=== PATIENT | female | born 1955 | race Caucasian/White ===

== ENCOUNTER → 2019-01-29 | Outpatient (CLI) | payer OTHER ==
[~2019-01-29] MED LIST: ALBUTEROL INHAL17 GM IH; ASPIRIN325 PO; AVALIDE 150-121 EACH PO; BENICAR HCT 401 EACH PO; CENESTIN0.45 MG PO; COLACE100 MG PO; COUMADIN PO; CRESTOR40 MG PO; GLUCOPHAGE500 MG PO; HYDROCODON-ACE1 EAC8 PO; IRON325 PO; LOSARTAN-HCTZ1 EAC2 PO; PHENERGAN-CODE120 ML PO; REGLAN 10 MG TA10 MG PO; VICTOZA0.6 MG/0.1 SQ
== END ==
LOC: CAT 11:15
DX: Z13.6 Encounter for screening for cardiovascular disorders (principal); E78.00 Pure hypercholesterolemia, unspecified; I25.10 Atherosclerotic heart disease of native coronary artery without angina pectoris

== ENCOUNTER 2019-03-02 00:54 | Emergency (ER) | payer OTHER ==
[~2019-03-02] VITALS: Ht 170.2 cm; Wt 93.0 kg
[2019-03-02] MEDS ORDERED: BYSTOLIC 5 MG5 M1 PO (01:04)
[2019-03-02] MEDS ORDERED: GLIPIZIDE 10 MG10 MG PO (01:05)
[2019-03-02] MEDS ORDERED: GLUCOPHAGE XR750 MG PO (01:05)
[2019-03-02] MEDS ORDERED: EDARBYCLOR 40-1 EACH PO (01:06)
[2019-03-02] MEDS ORDERED: LIPITOR 20 MG T20 M1 PO (01:06)
[2019-03-02 01:53] LABS: AMP/METHAMP Negative (Negative); BARBITURATES Negative (Negative); BENZODIAZEPINES Negative (Negative); COCAINE Negative (Negative); METHADONE Negative (Negative); OPIATES Negative (Negative); PCP Negative (Negative)
[2019-03-02 02:04] LABS: ABSOLUTE NEUTROPHILS 5.2 thou/uL (1.4-8.2); BASOPHILS 0.6 % (0.0-2.0); EOSINOPHILS 1.3 % (0.0-3.0); HEMATOCRIT 36.5 % (37.0-47.0); HEMOGLOBIN 12.1 gm/dL (12.0-15.0); LYMPHOCYTES 32.1 % (24.0-44.0); MCH 27.1 pg (26.0-34.0); MCHC 33.1 g/dL (28.0-37.0); MCV 81.9 fL (80.0-100.0); MONOCYTES 8.4 % (1.0-8.0); PLATELET COUNT 258 thou/uL (150-400); POLYS 57.6 % (36.0-66.0); RBC 4.45 mil/uL (4.20-5.00); RDW 13.9 % (10.5-14.5)
[2019-03-02 02:15] LABS: ANION GAP 9 mmol/L (7-16); BUN 23 mg/dL (7-18); CALCIUM 11.9 mg/dL (8.5-10.1); CHLORIDE 100 mmol/L (98-107); CO2 30 mmol/L (21-32); CREATININE 1.1 mg/dL (0.6-1.0); GLUCOSE 167 mg/dL (74-106); POTASSIUM 4.4 mmol/L (3.5-5.1); SODIUM 139 mmol/L (136-145)
[2019-03-02 02:17] LABS: PROTIME 9.2 Seconds (9.3-11.4)
[2019-03-02 02:24] LABS: ALBUMIN 3.9 g/dL (3.4-5.0); MAGNESIUM 1.5 mg/dL (1.8-2.4); SGOT 24 U/L (15-37); SGPT 20 U/L (30-65); TOTAL BILIRUBIN 0.4 mg/dL (<0.1-1.0); TOTAL PROTEIN 7.1 g/dL (6.4-8.2); TROPONIN-I <0.06 ng/mL (<0.06)
[2019-03-02] MEDS ORDERED: CLONIDINE0.1 PO (02:38)
[2019-03-02] MEDS ORDERED: PEPCID20 MG PO (02:38)
[2019-03-02] MEDS ORDERED: MAG-OXIDE400 MG PO (02:53)
[2019-03-02 05:22] VITALS: BP 128/61
--- NOTE | 2019-03-02 08:25 | EKG ---
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 : 1955 Requested By: Gabriel Weir Order Number: [id number] MD: Rohit Holland Measurements Intervals [place] Rate: 69 P: 61 DC: 158 QRS: 68 QRSD: 96 T: 60 QT: 382 QTc: 410 Interpretive Statements Sinus rhythm Baseline wander in lead(s) V6 Compared to ECG 07/28/2010 11:38:06 No significant changes Electronically Signed On 03-02-2019 8:25:17 CDT by Rohit Holland [email or web address] ��������������������������������������������� <ELECTRONICALLY SIGNED> ���������������������������������������� By: Rohit Holland MD ��������������������������������������������� 03/02/19 0825 010 010 Rohit Holland MD /CALEB
== END 2019-03-02 05:27 | disposition home or self-care (01) ==
LOC: ER 00:54
PROVIDERS: Emergency Medicine
DX: I10 Essential (primary) hypertension (principal); K21.9 Gastro-esophageal reflux disease without esophagitis; E83.42 Hypomagnesemia; E11.9 Type 2 diabetes mellitus without complications; Z90.710 Acquired absence of both cervix and uterus; Z98.51 Tubal ligation status; Z98.890 Other specified postprocedural states; Z79.899 Other long term (current) drug therapy